=== PATIENT | male | born 1990 | race Caucasian/White ===

== ENCOUNTER 2020-12-30 18:10 | Emergency (ER) | payer OTHER ==
[~2020-12-30] VITALS: Ht 182.9 cm; Wt 84.1 kg
[2020-12-30] MEDS ORDERED: NEOMY/BACITR/POLYMYXIN OINT PACKET. TP ONE (18:30)
[2020-12-30] MEDS ORDERED: IV NORMAL SALINE 1000ML BAG 1,000 ML IV ONE (18:30)
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
[2020-12-30 18:41] LABS: AMPHETAMINE/METHAMPHETAMINE NEG (NEG); BARBITURATES NEG (NEG); BENZODIAZEPINES NEG (NEG); CANNABINOIDS POS (NEG); COCAINE NEG (NEG); METHADONE NEG (NEG); OPIATES NEG (NEG); PHENCYCLIDINE NEG (NEG)
[2020-12-30 18:54] LABS: BASO % 0 % (0-3); EOS # 0.1 x10^3/uL (0.0-0.7); EOS % 2 % (0-3); HEMATOCRIT 43.5 % (39.0-53.0); HEMOGLOBIN 14.9 g/dL (13.0-17.5); LYMPH # 1.2 x10^3/uL (1.0-4.8); LYMPH % 18 % (24-48); MEAN CORPUSCULAR HEMOGLOBIN 32 pg (25-35); MEAN CORPUSCULAR HGB CONC 34 g/dL (31-37); MEAN CORPUSCULAR VOLUME 95 fL (79-100); MONO # 0.4 x10^3/uL (0.0-1.1); MONO % 6 % (0-9); NEUT # 5.1 x10^3/uL (1.8-7.7); NEUT % 75 % (31-73); PLATELET COUNT 235 x10^3/uL (140-400); RED BLOOD COUNT 4.61 x10^6/uL (4.30-5.70); WHITE BLOOD COUNT 6.9 x10^3/uL (4.0-11.0)
--- NOTE | 2020-12-30 18:55 | RAD ---
Exam: Chest one view INDICATION: Fentanyl overdose TECHNIQUE: Frontal view of the chest Comparisons: None FINDINGS: The cardiomediastinal silhouette and pulmonary vessels are within normal limits. The lung and pleural spaces are clear. IMPRESSION: No acute cardiopulmonary process. Electronically signed by: Savana Sosa MD (12/30/2020 6:53 PM) JENNIFER
[2020-12-30 19:11] LABS: CALCIUM 9.3 mg/dL (8.5-10.1); CREATININE 0.8 mg/dL (0.7-1.3); GFR 115.1; POTASSIUM 3.8 mmol/L (3.5-5.1)
[2020-12-30] MEDS ORDERED: NEOM28OI48 TP (19:20)
[2020-12-30 19:24] LABS: ALBUMIN 3.9 g/dL (3.4-5.0); ALBUMIN/GLOBULIN RATIO 1.2 (1.0-1.7); TOTAL BILIRUBIN 0.2 mg/dL (0.2-1.0); TOTAL PROTEIN 7.2 g/dL (6.4-8.2)
[2020-12-30] MEDS ORDERED: DIPH,PERTUSS(ACELL),TET VAC/PF 0.5 ML SYRINGE. VAX IM ONE (19:30)
[2020-12-30 20:20] VITALS: BP 146/94
--- NOTE | 2020-12-30 20:55 | EKG ---
[facility] [address] [place] [address] Test Date: 2020-12-30 Test Time: 18:37:04 Pat Name: KRISTEL HOLLAND Department: Room: Gender: M Presser Cotton Ginning: : 1990 Requested By: TAMMIE BASSETT Order Number: [id number] Reading MD: Jordy Garcia MD Measurements Intervals [place] Rate: 121 P: 25 ND: 138 QRS: 68 QRSD: 90 T: 36 QT: 300 QTc: 429 Interpretive Statements SINUS TACHYCARDIA Electronically Signed On 01-01-2021 9:11:20 CDT by Jordy Garcia MD
== END 2020-12-30 20:40 | disposition home or self-care (01) ==
LOC: ER 18:10
DX: T40.411A Poisoning by fentanyl or fentanyl analogs, accidental (unintentional), initial encounter (principal); T21.11XA Burn of first degree of chest wall, initial encounter; R11.10 Vomiting, unspecified; R00.0 Tachycardia, unspecified; F10.20 Alcohol dependence, uncomplicated; Y90.1 Blood alcohol level of 20-39 mg/100 ml; Z87.891 Personal history of nicotine dependence; X08.8XXA Exposure to other specified smoke, fire and flames, initial encounter; Y93.89 Activity, other specified; Y92.89 Other specified places as the place of occurrence of the external cause; Y99.8 Other external cause status
CPT/HCPCS: 16020; 36415; 71045; 80053; 80307; 85025; 90471; 90715; 93005; 96360; 99285; G0480; J7030